=== PATIENT | male | born 1970 | race Caucasian/White ===

== ENCOUNTER 2018-06-23 19:43 | Emergency (ER) | payer MEDICAID ==
[~2018-06-23] VITALS: Ht 182.9 cm; Wt 81.2 kg
[2018-06-23 19:48] VITALS: Ht 182.9 cm; Wt 81.2 kg
[2018-06-23 21:29] LABS: CALCIUM 8.8 mg/dL (8.5-10.1); CARBON DIOXIDE 26.5 mmol/L (21-32); CREATININE SERUM 1.4 mg/dL (0.7-1.3); POTASSIUM SERUM 4.3 mmol/L (3.5-5.1)
[2018-06-23 21:35] LABS: BILIRUBIN TOTAL 0.32 mg/dL (0.20-1.00); TOTAL PROTEIN, SERUM 6.6 g/dL (6.4-8.2)
[2018-06-23 21:36] LABS: ALBUMIN 3.3 g/dL (3.4-5.0)
[2018-06-23 21:37] LABS: microscopic required? YES; urine erythrocyte 3+ (NEGATIVE)
[2018-06-23 22:00] LABS: BASOPHIL % 0.3 % (0-2); PLATELET COUNT 178 x10^3mcL (130-400); RED CELL DISTRIBUTION WIDTH 13.6 % (11.5-14.5)
[2018-06-24 00:20] VITALS: BP 115/62
== END 2018-06-24 00:20 | disposition home or self-care (01) ==
LOC: ED 19:43
PROVIDERS: Emergency Medicine
DX: N23 Unspecified renal colic (principal); J45.909 Unspecified asthma, uncomplicated; Z88.8 Allergy status to other drugs, medicaments and biological substances; Z88.6 Allergy status to analgesic agent
CPT/HCPCS: 36415; J1885; Q0162